=== PATIENT | male | born 1985 | race Caucasian/White ===

== ENCOUNTER → 2021-09-09 09:09 | Outpatient (CLI) | payer OTHER, SELFPAY ==
[2021-09-09 13:22] LABS: COVID19 -Nasal RAPID Negative (Negative)
== END ==
PROVIDERS: PCP Student in an Organized Health Care Education/Training Program; Visit Provider Nurse Practitioner Family
DX: Z20.822 Contact with and (suspected) exposure to COVID-19 (principal)
CPT/HCPCS: 87635; C9803

== ENCOUNTER 2021-09-11 12:01 | Day surgery (SDC) | payer OTHER, SELFPAY ==
[2021-09-08 15:12] VITALS: BMI 27.8
[2021-09-11] VITALS (12 sets, daily range): BP systolic 129–170; BP diastolic 84–104; PULSE 65–97; RESP 9–20; TEMP 36.2–36.5; O2SAT 96–99; BMI 27.8
[2021-09-11] MEDS: LACTATED RINGERS 1,000 ML 42 ML IV (12:19)
--- NOTE | 2021-09-11 12:37 | PM.PREOP ---
Pre-operative Note Interval Note History & Physical reviewed/Exam performed by Physician: Yes Changes to H&P: No
--- NOTE | 2021-09-11 12:38 | PM.HP.1 ---
History of Present Illness History of Present Illness Date Patient Seen: 09/11/21 Chief complaint: MASOUD Narrative: 36-year-old male with history of nasal obstruction, turbinate hypertrophy and possible internal nasal valve obstruction presents for surgical intervention, last seen 06/05/2021 in clinic, note reviewed. No interval health changes, wishes to proceed. He would consider an open rhinoplasty approach in the future if there are persistent problems. No recent cough, cold, or fever. Patient History Medical History Nasal fracture Nasal obstruction Nasal septal deviation Nasal turbinate hypertrophy Nasal valve blockage Tinnitus Family & Social History Social History: household members spouse Tobacco & Substance use: Smoking Status Never smoker alcohol intake current alcohol intake frequency a few times a week Substance Use Type does not use Meds Home Medications and Allergies Allergies Allergy/AdvReac Type Severity Reaction Status Date / Time hydrocodone [From Vicodin] Allergy Itching, Verified 09/11/21 11:51 vomiting Opioids - Morphine Analogues Allergy Itching, Verified 09/11/21 11:51 vomiting Review of Systems Review of Systems Narrative: Negative except as noted in the HPI. Exam Vital Signs (past 8 hours): - 09/11/21 12:22 Temperature 97.2 F L Pulse Rate 65 Respiratory Rate 20 Blood Pressure 129/84 Pulse Oximetry 99 Oxygen Delivery Method Room Air Narrative Exam Narrative: Well-developed well-nourished male no acute distress heart regular rate and rhythm without murmur lungs clear to auscultation bilaterally, 3+ left septal deviation Assessment & Plan Assessment & Plan narrative: Assessment: Nasal airway obstruction, septal deviation, inferior turbinate hypertrophy, internal nasal valve restriction Plan: Following discussion of the material risks benefits complications and alternatives, patient elected to proceed as outpatient. Time Spent With Patient Critical Care time: I spent a total of [] minutes of critical care time on this patient's care today; this time is exclusive of procedural time.
--- NOTE | 2021-09-11 12:40 | PM.OP.1 ---
Operative Date/Time/Diagnoses Date of procedure: 09/11/21 Time of procedure: 14:23 Pre-op diagnosis: Nasal airway obstruction, septal deviation, inferior turbinate hypertrophy, bilateral internal nasal valve restriction Post-op diagnosis: same Procedure & Clinicians Procedure: 1. Septoplasty 2. Bilateral inferior turbinate reduction via intramural cautery 3. Bilateral internal nasal valve release Same procedure as scheduled: Yes Indications: 36-year-old male with the above diagnoses incompletely managed with medical therapy presents to the above procedures. Following discussion of the material risks benefits complications and alternatives, he elected to proceed. Surgeon: Neil Brdiges Click Yes if Unassisted: Yes Anesthesia Type: General and Local Operative Notes Findings: 3+ left septal deviation, right greater than left inferior turbinate hypertrophy, compromised bilateral internal nasal valve at completion of septoplasty, therefore bilateral INV release performed Closure Type: primary Estimated Blood Loss (mL): 80 Procedure in detail: Following identification and confirmation of consent as well as preoperative Afrin nasal spray, the patient was brought to the operating room suite and placed in the supine position. General endotracheal anesthesia was administered. I infiltrated the septum widely bilaterally with 1% lidocaine 1 100,000 epinephrine followed by temporary packing with cotton with Afrin and 4% lidocaine. Following sterile prep and drape, the packing was removed and I performed a right donovan-transfixion incision, elevated the right mucoperichondrial and mucoperiosteal flap. I disarticulated near the bony/cartilaginous junction and elevated the left mucoperiosteal flap. Deviated portions of the perpendicular plate of the ethmoid and vomer were resected. The residual quadrilateral cartilage was further straightened by trimming it inferiorly as well as reducing the maxillary crest. A 2 mm strip of cartilage paralleling the residual 1 cm dorsal and caudal strut was resected to further straighten the quadrilateral cartilage. The hemitransfixion incision was closed with interrupted 5 0 chromic followed by a running 4 0 plain gut mattress suture to reapproximate the septal flaps. At case completion, 20/1000th of an inch silastic splints were placed bilaterally, sutured anteriorly with a single 4 0 nylon. The head of each inferior turbinate had been previously infiltrated with additional local anesthetic and a 25 gauge spinal needle was used to impale the length of the turbinate, with cautery on a setting of 15 activated on slow withdrawal over 2 passes. The turbinates were then outfractured. Bilateral internal nasal valves were persistently compromised after septoplasty, therefore the scroll region was incised bilaterally, and after partial elevation of mucosa, approx 2mm of cartilage of the scroll was excised bilaterally with closure of the mucosa with interrupted 5-0 chromic with improved space in the INV at completion. The procedure completed, sponge and needle counts were correct and the patient was extubated in the operating room and taken to recovery room in stable condition without known complication. Postoperative care: Nasal saline every hour while awake, Vaseline or Polysporin to the nostrils at all times, begin irrigations t.i.d. beginning pod 1. Humidifier at the bedside blowing on the face. Tylenol alternating with Advil for pain control, oxycodone if necessary for breakthrough pain. Complications: none Post-operative Condition: stable Disposition: same day surgery Plan for aftercare: Nasal saline every hour while awake, begin irrigations t.i.d. tomorrow if desired. Polysporin to the nostrils at all times, Tylenol alternating with Advil for pain control, oxycodone for breakthrough pain. Elevate head of bed, no nose blowing, no straining for 2 weeks. Follow-up in 1 week for nasal splint removal.
[2021-09-11] MEDS: OXYMETAZOLINE NASAL SPRAY 15 ML 2 SPRAYS NASAL (12:50)
--- NOTE | 2021-09-11 13:13 | SUR.OPER ---
Supine on padded OR bed, head on gel donut, arms padded and tucked at sides, legs uncrossed, safety belt at thigh, tape over blanket over lower legs .
[2021-09-11] MEDS: fentaNYL 250 MCG/5 ML INJ IV (14:49)
[2021-09-11] MEDS: ONDANSETRON 4 MG/2 ML INJ IV (14:55)
[2021-09-11] MEDS: OXYCODONE/ACETAMINOPHEN 5/325 TABLET 1 TAB PO ×2 (15:03→15:37)
--- NOTE | 2021-09-11 15:29 | SUR.PHASEI ---
SBAR report to Ro WILLSON.
== END 2021-09-11 16:05 | disposition home or self-care (01) ==
PROVIDERS: PCP Student in an Organized Health Care Education/Training Program; Referring Provider Otolaryngology; Visit Provider Otolaryngology
PROC: (CPT 30520; principal; 2021-09-11 13:00)
DX: J34.2 Deviated nasal septum (principal); J34.89 Other specified disorders of nose and nasal sinuses; J34.3 Hypertrophy of nasal turbinates
CPT/HCPCS: 30465; 30802; 30520; A9270; J1100; J2250; J2405; J2704; J3010